=== PATIENT | male | born 1940 | race Caucasian/White ===

== ENCOUNTER → 2016-09-17 | Day surgery (SDC) | payer OTHER ==
[2016-09-09 17:20] VITALS: BMI 20.9
[~2016-09-17] MED LIST: ACETAMINOPHEN 325 MG TABLET (FP) PO PRN; ACETYLCHOLINE 1:100 INTRA-OCUL 20 MG/2 ML KIT ONE; BACITRACIN/POLYMYXIN OPH OINT 3.5 GM TUBE ONE; BETAXOLOL HCL 0.25% OPHTHALMIC 10 ML DROPSBTL ONE; BUPIVACAINE HCL/PF 0.5% (5MG/ML) 10 ML VIAL ONE; CYCLOPENTOLATE HCL 1% OPHTH SOLN 2 ML BOTTLE ONE; DEXAMETHASONE SOD PHOSPHATE 4 MG/1 ML VIAL ONE; EPINEPHrine 1:1,000 1 MG/1 ML - 30ML VIAL (INJECTION) ONE; FLURBIPROFEN 0.03% OPHTH SOLN 2.5 ML BOTTLE ONE; GENTAMICIN SULFATE 0.3% OPHTHALMIC (EYE DROPS) 5ML BOTTLE ONE; LACTATED RINGERS SOLUTION 1,000 ML IV SCH; LIDOCAINE HCL/PF 2% SDV 5ML VIAL ONE; MIDAZOLAM HCL 2 MG/2 ML SINGLE DOSE VIAL ONE; NEO/POLYMYX B SULF/DEXAMETH OPHTHALMIC 5ML BOTTLE ONE; ONDANSETRON 4 MG/2 ML VIAL IVPUSH PRN; ONDANSETRON 4 MG/2 ML VIAL ONE; PHENYLEPHRINE 2.5% OPHTH SOLN 15 ML BOTTLE ONE; POVIDONE-IODINE 5% OPHTHALMIC PREP 30 ML SOLUTION ONE; PROPOFOL 20 ML ONE; SODIUM CHLORIDE 0.9% P/F 10 ML VIAL IJ ONE; SUCCINYLCHOLINE CHLORIDE 200 MG/10 ML VIAL ONE; TETRACAINE 0.5% OPHTH SOLN 2 ML BOTTLE ONE; TROPICAMIDE 1% OPHTH SOLN 15 ML BOTTLE ONE; ePHEDrine SULFATE 50 MG/1 ML AMPULE ONE
[2016-09-17] MEDS: GENTAMICIN SULFATE 0.3% OPHTHALMIC (EYE DROPS) 5ML BOTTLE OD SCH ×4 (07:20→07:40)
[2016-09-17] MEDS: TROPICAMIDE 1% OPHTH SOLN 15 ML BOTTLE OD SCH ×5 (07:20→07:40)
[2016-09-17] MEDS: FLURBIPROFEN 0.03% OPHTH SOLN 2.5 ML BOTTLE OD SCH ×5 (07:20→07:40)
[2016-09-17] MEDS: PHENYLEPHRINE 2.5% OPHTH SOLN 15 ML BOTTLE OD SCH ×5 (07:20→07:40)
[2016-09-17] MEDS: CYCLOPENTOLATE HCL 1% OPHTH SOLN 2 ML BOTTLE OD SCH ×5 (07:20→07:40)
[2016-09-17 09:33] VITALS: TEMP 98.8
[2016-09-17 09:41] VITALS: BP 131/75; PULSE 77
--- NOTE | 2016-09-17 09:46 | OP ---
DATE OF OPERATION: 09/17/2016 PREOPERATIVE DIAGNOSIS: Cataract, right eye. POSTOPERATIVE DIAGNOSIS: Cataract, right eye. PROCEDURE: Cataract extraction via phacoemulsification with insertion of posterior chamber lens implant, right eye. ANESTHESIA: Regional with sedation. ESTIMATED BLOOD LOSS: Less than 1 mL. SURGEON: Kevin Grande M.D. WAX PATTERN ASSEMBLER: Eugenie Avalos M.D. SPECIMENS: None. COMPLICATIONS: None. PROCEDURE: The patient was identified in the holding area, after all risks, benefits and alternatives were explained to the patient, informed consent was obtained. The right eye was marked with the marking pen. The patient then entered the operating room on the eye stretcher. After a formal timeout was performed, a 3 mL injection of equal parts of 3% lidocaine with epinephrine and 0.5% Marcaine was given around the right eye. The patient was then prepped and draped in the usual sterile fashion. An eyelid speculum was placed beneath the eyelids of the right eye. A superotemporal incision was created using a 15-degree blade, followed by viscoelastic injection to the anterior chamber. A 2.4 mm keratome blade was then used to make an infratemporal incision. Then, a cystotome and Utrata forceps were then used to create a 360-degree continuous curvilinear capsulorhexis. Hydrodissection was performed with balanced saline solution on the cannula. Phacoemulsification was then introduced to disassemble and remove the nucleus in its entirety. Irrigation/aspiration was then used to remove any remaining cortical material from the eye. The capsular bag was then refilled using viscoelastic. An Jose model [id number] with a power of 15.5 diopters, serial No. [id number], was inspected and found to be defect-free and injected into the capsular bag. Irrigation/aspiration was then used to remove any remaining viscoelastic from the eye. The anterior chamber was then reformed using balanced saline solution. Intracameral injections of Miochol and Miostate were then given. All wounds were hydrated with balanced saline solution and found to be water tight. The eye had an adequate pressure, the lens was properly distended in the capsular bag and the anterior chamber was deep. Topical antibiotic ointment and eye drops were then given to the right eye. The right eye was then patched and shielded. The patient tolerated the procedure well and left the operating room in stable condition to follow up in [facility] the next morning at 9 o'clock. KEVIN GRANDE M.D. WIN/[id number]
== END | disposition home or self-care (01) ==
LOC: FASU 06:47
PROVIDERS: ATTEND Ophthalmology
PROC: 08RJ3JZ Replacement of Right Lens with Synthetic Substitute, Percutaneous Approach (ICD-10-PCS; principal; 2016-09-17 08:30)
DX: H26.8 Other specified cataract (principal)